=== PATIENT | female | born 1940 | race Caucasian/White ===

== ENCOUNTER 2019-04-18 21:59 | Inpatient (IN) | payer OTHER ==
[~2019-04-18] VITALS: Ht 154.9 cm; Wt 99.4 kg
--- NOTE | 2019-04-18 22:20 | NUR ---
chata at bedside attempting IV access. unable to obtain.
[2019-04-18 23:06] LABS: CALCIUM 7.8 mg/dL (8.5-10.1); CARBON DIOXIDE 33.5 mmol/L (21-32); CHLORIDE SERUM 98 mmol/L (98-107); CREATININE SERUM 0.8 mg/dL (0.6-1.0); GLUCOSE SERUM 135 mg/dL (74-106); POTASSIUM SERUM 4.5 mmol/L (3.5-5.1); SODIUM SERUM 137 mmol/L (136-145)
[2019-04-18 23:10] LABS: ALBUMIN 3.4 g/dL (3.4-5.0); ALKALINE PHOSPHATASE 472 U/L (46-116); ALT/SGPT 127 U/L (14-59); AST/SGOT 223 U/L (15-37); BILIRUBIN TOTAL 0.9 mg/dL (0.20-1.00); LIPASE 35 IU/L (73-393)
[2019-04-18 23:12] LABS: PLATELET COUNT 185 x10^3mcL (130-400)
[2019-04-18 23:17] LABS: RED CELL DISTRIBUTION WIDTH 18.4 % (11.5-14.5)
[2019-04-18 23:36] LABS: BAND NEUTROPHIL 6 % (0-10); BASOPHIL 0 % (0-2); MONOCYTE 1 % (0-7); SEGMENTED NEUTROPHILS 84 % (37-75); rbc morphology (normal/abnorm) NORMAL (NORMAL)
[2019-04-19] VITALS (17 sets, daily range): BP systolic 75–163; BP diastolic 47–80
--- NOTE | 2019-04-19 00:38 | NUR ---
EMPTIED ILEOSTOMY BAG. 250 CC OF BROWN LIQUID DRAINAGE. PT TOLERATED WELL.
[2019-04-19 01:16] LABS: UA SPECIFIC GRAVITY >=1.030 (1.005-1.035); microscopic required? YES; urine erythrocyte 2+ (NEGATIVE)
--- NOTE | 2019-04-19 01:37 | NUR ---
XRAY AT BEDSIDE.
--- NOTE | 2019-04-19 02:04 | NUR ---
ACCOMPANIED PATIENT TO CT AT THIS TIME.
--- NOTE | 2019-04-19 02:04 | NUR ---
ACCOMPANIED PATIENT TO CT.
--- NOTE | 2019-04-19 03:46 | NUR ---
SPOKE WITH DR VALLEJO REGARDING PATIENT RESISTING THE VENT, RECEIVED VERBAL ORDER TO TITRATE PROPOFOL FROM 10 MCG/KG/MIN TO 15 MCG/KG/MIN. PATIENT TOLERATING WELL UPON VENT.
--- NOTE | 2019-04-19 04:03 | NUR ---
PROVIDED PERICARE WITH CLEANSING CLOTHS, TOWEL DRIED, CHANGED ALL LINEN, AND DONNED GOWN. VITAL SIGNS REMAIN STABLE. PT APPEARS COMFORTABLE NO ACUTE DISTRESS NOTED.
--- NOTE | 2019-04-19 04:16 | NUR ---
ADMITTING MD AT BEDSIDE ASSESSING PT.
[2019-04-19 04:36] LABS: AMPHETAMINE QUAL UR NONE DETECTED (See below)
[2019-04-19 04:41] LABS: CHOLESTEROL/HDL RATIO 4.3
--- NOTE | 2019-04-19 04:56 | NUR ---
REPORT ENDORSED TO SAWMILL MOULDER OPERATOR SALVADOR.
--- NOTE | 2019-04-19 05:00 | NUR ---
PATIENT TRANSFERRED TO ICU ON PROPOFOL DRIP AT 15MCG/KG/MIN. TOLERATING WELL. VS REMAIN STABLE.
--- NOTE | 2019-04-19 06:30 | NUR ---
PT ADMITTED 0520 FROM ED. PT INTUBATED, SEDATED, AND RESTRAINED. RESTRAINT DOCUMENTATION COMPLETE IN PAPER AND COMPUTER CHARTING. PT WITH NO FAMILY CURRENTLY AT BEDSIDE AWAITING CONSULT FOR POSSIBLE SBO. ILLESTOMY SITE CURRENTLY PUTTING OUT SEMI FORMED BROWN STOOL. PROPOFOL INFUSING AT 25MCG/KG/MIN WITH MOVEMENT TO PHYSICAL STIMULUS. NO SIGNS/SYMPTOMS OF PAIN.
--- NOTE | 2019-04-19 08:33 | NUR ---
PT ADMINISTERED 4MG IVP MORPHINE AND 1L BOLUS INITIATED AT THIS TIME PER DR. PETERS REQUEST. WILL CONTINUE TO MONITOR.
--- NOTE | 2019-04-19 08:40 | NUR ---
DR. PETERS AT BEDSIDE. QUESTIONS ANSWERED, UPDATES PROVIDED. DR. PETERS RECOMMENDED ADMINISTERING 4MG MORPHINE IVP D/T PT APPEARING UNCOMFORTABLE AND SUGGESTED A 1L BOLUS OF NS. WILL CARRY OUT ORDERS.
[2019-04-19 08:46] LABS: CALCIUM 7.7 mg/dL (8.5-10.1); CARBON DIOXIDE 27.9 mmol/L (21-32); CHLORIDE SERUM 101 mmol/L (98-107); GLUCOSE SERUM 125 mg/dL (74-106); POTASSIUM SERUM 4.1 mmol/L (3.5-5.1); SODIUM SERUM 138 mmol/L (136-145)
--- NOTE | 2019-04-19 08:55 | NUR ---
CONTRAST INSTILLED VIA OGT FOR BOWEL SERIES. PT TOLERATED INSTILLATION WELL.
--- NOTE | 2019-04-19 09:09 | NUR ---
ECHOCARDIOGRAM PENDING-HAVING X-RAY
--- NOTE | 2019-04-19 09:20 | NUR ---
FIRST KUB AT BEDSIDE FOR BOWEL SERIES.
--- NOTE | 2019-04-19 09:30 | NUR ---
OGT ADVANCED BY ~5CM PER RADIOLOGIST REQUEST. PT TOLERATED ADVANCEMENT WELL. AIR BOLUS AUSCULTATED OVER STOMACH REGION.
[2019-04-19 09:36] LABS: PLATELET COUNT 152 x10^3mcL (130-400)
--- NOTE | 2019-04-19 09:56 | NUR ---
SECOND KUB AT BEDSIDE FOR BOWEL SERIES.
--- NOTE | 2019-04-19 10:35 | NUR ---
PATIENT ROUNDS WITH DR. MICHAEL AND RESIDENTS. CHARGE NURSE AND PRIMARY NURSE AT BEDSIDE. UPDATES PROVIDED AND POC DISCUSSED. WILL CONTINUE TO MONITOR.
[2019-04-19 11:28] LABS: RED CELL DISTRIBUTION WIDTH 18.2 % (11.5-14.5)
--- NOTE | 2019-04-19 12:55 | NUR ---
XRAY AT BEDSIDE FOR CONTINUATION OF BOWEL STUDY.
--- NOTE | 2019-04-19 14:31 | NUR ---
DR. REYES, DR. THOMPSON, AND MEDICAL STUDENTS AT BEDSIDE FOR INSERTION OF CENTRAL LINE. CONSENT OBTAINED AND SIGNED BY PT'S SON, AP.
--- NOTE | 2019-04-19 14:48 | NUR ---
SAHARA TL CVC INSERTION COMPLETED BY DR. REYES. PT TOLERATED PROCEDURE WELL.
[2019-04-19 15:11] LABS: BAND NEUTROPHIL 6 % (0-10); BASOPHIL 0 % (0-2); MONOCYTE 2 % (0-7); SEGMENTED NEUTROPHILS 91 % (37-75)
[2019-04-19 15:12] LABS: PLATELET MORPHOLOGY PLATELETS INCREASED; rbc morphology (normal/abnorm) ABNORMAL (NORMAL)
--- NOTE | 2019-04-19 19:30 | NUR ---
REC'D REPORT FROM TENISHA CONNOR TO ASSUME CARE. PT INTUBATED AND SEDATED ON FENTANYL 1 MCG/KG/HR, VERSED 2 MG/HR WITH RSS 4. PERRLA NOTED 2MM SLUGGISH ROBIN. RESPONSIVE TO TACTILE STIMULI. 7.5 ETT SECURED AT 20 CM @ LL. NO JVD NOTED. TRACHEA MIDLINE. OGT IN PLACE. RIJ CVC INTACT, PORTS PATENT, DSG CDI. EENT FREE OF DISCHARGE. ETT TO VENT: AC MODE RATE 14, TV 500, PEEP 5, FIO2 40%. CHEST RISE EQUAL AND SYMMETRICAL. LUNG SOUNDS CLEAR BUL, DIM BASES. DECK BUILDER IN PLACE SHOWING ST WITH HR 114. PULSES PALPABLE X4. NO EDEMA NOTED. CAP REFILL < 3 SECS. IVF NS INFUSING @ 75 ML/HR. GEN WEAKNESS NOTED. BUE SOFT WRIST RESTRAINTS IN PLACE FOR PT SAFETY. TURNED AND REPOSITIONED Q2H FOR PRESSURE RELIEF. ABD DISTENDED AND SOFT. BOWEL SOUNDS HYPOACTIVE. NO S/SX OF N/V/D. ILEOSTOMY IN PLACE, DRAINING SOFT BROWN STOOL. F/C INTACT AND DRAINING VIA GRAVITY FADY COLORED URINE. NO VAGINAL BLEEDING NOTED. BLE DISCOLORATION NOTED. BLE SCDS IN PLACE. ALL NEEDS MET AT THIS TIME. WILL CONTINUE TO MONITOR.
--- NOTE | 2019-04-19 19:40 | NUR ---
PTS ILEOSTOMY CLAMP NOT IN PLACE AND APPEARS BROKEN. ILEOSTOMY CHANGED AT THIS TIME. STOMA APPEARS PINK AND MOIST. NO S/SX OF INFECTION OR SKIN BREAKDOWN AROUND STOMA. PT TOLERATED WELL.
--- NOTE | 2019-04-19 20:10 | NUR ---
PTS BED NOTED SOILED WITH BLOOD FROM CENTRAL LINE INSERTION DURING DAYSHIFT, ALL LINENS CHANGED AT THIS TIME. RT MADE AWARE ANCHOR FAST SOILED WITH BLOOD.
--- NOTE | 2019-04-19 21:00 | NUR ---
ANCHOR FAST CHANGED AT THIS TIME BY RT.
--- NOTE | 2019-04-19 21:30 | NUR ---
PTS SON CALLED, UPDATED ON STATUS, ALL QUESTIONS AND CONCERNS ADDRESSED.
--- NOTE | 2019-04-19 23:30 | NUR ---
PT SEDATED BUT EASILY AROUSABLE. NO S/SX OF PAIN PER FLACC SCALE. VAP CARE PROVIDED. TURNED AND REPOSITIONED AT THIS TIME.
[2019-04-20] VITALS (10 sets, daily range): BP systolic 105–138; BP diastolic 50–77; Ht 154.9 cm; Wt 99.4 kg
--- NOTE | 2019-04-20 03:22 | NUR ---
FULL BED BATH PROVIDED WITH CHG WIPES, F/C CARE PROVIDED, ALL LINENS CHANGED.
[2019-04-20 04:49] LABS: PLATELET COUNT 100 x10^3mcL (130-400); RED CELL DISTRIBUTION WIDTH 17.2 % (11.5-14.5)
[2019-04-20 04:55] LABS: CALCIUM 7.1 mg/dL (8.5-10.1); CARBON DIOXIDE 25.8 mmol/L (21-32); CHLORIDE SERUM 103 mmol/L (98-107); CREATININE SERUM 0.9 mg/dL (0.6-1.0); GLUCOSE SERUM 95 mg/dL (74-106); MAGNESIUM 1.5 mg/dL (1.8-2.4); PHOSPHOROUS 2.2 mg/dL (2.5-4.9); POTASSIUM SERUM 4.3 mmol/L (3.5-5.1); SODIUM SERUM 136 mmol/L (136-145)
[2019-04-20 05:23] LABS: BAND NEUTROPHIL 17 % (0-10); BASOPHIL 0 % (0-2); MONOCYTE 7 % (0-7); SEGMENTED NEUTROPHILS 73 % (37-75)
[2019-04-20 05:25] LABS: rbc morphology (normal/abnorm) NORMAL (NORMAL)
--- NOTE | 2019-04-20 05:42 | NUR ---
REPORTED MAG [address] SO, NO NEW ORDERS GIVEN.
--- NOTE | 2019-04-20 07:14 | NUR ---
REPORT GIVEN TO TENISHA CONNOR TO ASSUME CARE.
--- NOTE | 2019-04-20 07:15 | NUR ---
REPORT RECEIVED FROM ADILENE CONNOR AND MORTEZA CONNOR. ALL CARES ASSUMED FOR THE SHIFT.
--- NOTE | 2019-04-20 08:08 | NUR ---
FIO2 ON VENT DECREASED TO 30% FROM 40% AT THIS TIME BY VIJAY RT. NO S/S DISTRESS NOTED.
--- NOTE | 2019-04-20 10:03 | NUR ---
DR. LOPEZ AT BEDSIDE TO ASSESS PT. UPDATES GIVEN, QUESTIONS ANSWERED.
--- NOTE | 2019-04-20 10:23 | NUR ---
CHEST XRAY COMPLETED AT BEDSIDE. PT TOLERATED WELL. PT REPOSITIONED AND MADE COMFORTABLE AFTER CXR. WILL CONTINUE TO MONITOR.
[2019-04-20 10:39] LABS: BILIRUBIN DIRECT 2.41 mg/dL (0.0-0.2); BILIRUBIN TOTAL 2.8 mg/dL (0.20-1.00); TOTAL PROTEIN, SERUM 6.4 g/dL (6.4-8.2)
[2019-04-20 10:46] LABS: ALBUMIN 3.2 g/dL (3.4-5.0)
--- NOTE | 2019-04-20 10:53 | NUR ---
SPOT CHECKED BLOOD SUGAR D/T NO NUTRITION AT THIS TIME. POC GLUCOSE 94.
--- NOTE | 2019-04-20 11:32 | NUR ---
PATIENT ROUNDS WITH DR. MICHAEL AND RESIDENTS. CHARGE NURSE AND PRIMARY NURSE AT BEDSIDE. UPDATES PROVIDED AND POC DISCUSSED. WILL CONTINUE TO MONITOR.
--- NOTE | 2019-04-20 11:38 | NUR ---
DR. PETERS AT BEDSIDE TO ASSESS PATIENT. FAMILY INCLUDING PATIENT'S SON AND DAUGHTER AT BEDSIDE. UPDATES PROVIDED AND POC DISCUSSED. VERSED AND FENTANYL DRIPS TURNED OFF AT THIS TIME FOR C-PAP TRIALS. GEETA STEVEN MADE AWARE. WILL CONTINUE TO MONITOR.
--- NOTE | 2019-04-20 11:52 | NUR ---
SEDATION TURNED BACK ON WITH VERSED AT 2 MG/HR AND FENTANYL DRIP AT 1 MCG/KG/HR PER DR. PETERS. NO PLAN FOR C-PAP TRIALS TODAY. DR. PETERS AGREES TO TRANSFER TO [facility] PER FAMILY'S REQUEST AND KEEP THE PATIENT INTUBATED FOR THE TRANSFER. GEETA STEVEN MADE AWARE.
--- NOTE | 2019-04-20 12:06 | NUR ---
DR. REYES HAS MADE ATTEMPTS TO GET IN CONTACT WITH [facility] AT [facility] TO COORDINATE TRANSFER, NO CONTACT MADE AT THIS TIME. FAMILY AWARE.
--- NOTE | 2019-04-20 12:34 | NUR ---
FAMILY STATING PATIENT IS UNCOMFORTABLE DUE TO PAIN FROM THE ETT. VERSED REMAINS AT 2 MG/HR AND FENTANYL DRIP TITRATED UP TO 2 MCG/KG/HR. RSS-3. GEETA STEVEN MADE AWARE. WILL CONTINUE TO MONITOR.
--- NOTE | 2019-04-20 12:36 | NUR ---
DR. BRYANT ACCEPTED THE PT TO [facility]. AWAITING CONFIRMATION OF AVAILABLE BED AT [facility].
--- NOTE | 2019-04-20 16:30 | NUR ---
PT DISCHARGED AT THIS TIME TO BE ADMITTED TO THE ICU AT [facility]. PT WAS PICKED UP BY [facility] FOR CCT. VITAL SIGNS STABLE AT TIME OF TRANSFER. FAMILY AT BEDSIDE, AWARE OF TRANSFER. ALL PT'S BELONGINGS IN POSSESSION OF FAMILY.
== END 2019-04-20 16:30 | disposition short-term general hospital (02) | DRG 871 ==
LOC: ED 21:59 → IC 04-19 04:00
PROVIDERS: Emergency Medicine; Internal Medicine Gastroenterology; ADMIT Internal Medicine
PROC: 5A1935Z Respiratory Ventilation, Less than 24 Consecutive Hours (ICD-10-PCS; principal; 2019-04-19)
PROC: 0BH17EZ Insertion of Endotracheal Airway into Trachea, Via Natural or Artificial Opening (ICD-10-PCS; 2019-04-19)
PROC: 05HM33Z Insertion of Infusion Device into Right Internal Jugular Vein, Percutaneous Approach (ICD-10-PCS; 2019-04-19)
PROC: B543ZZA Ultrasonography of Right Jugular Veins, Guidance (ICD-10-PCS; 2019-04-19)
DX: A41.9 Sepsis, unspecified organism (principal); J96.02 Acute respiratory failure with hypercapnia; J18.9 Pneumonia, unspecified organism; J44.1 Chronic obstructive pulmonary disease with (acute) exacerbation; N39.0 Urinary tract infection, site not specified; K56.609 Unspecified intestinal obstruction, unspecified as to partial versus complete obstruction; I11.0 Hypertensive heart disease with heart failure; I50.9 Heart failure, unspecified; R74.0 Nonspecific elevation of levels of transaminase and lactic acid dehydrogenase [LDH]; E83.51 Hypocalcemia; E78.5 Hyperlipidemia, unspecified; D63.8 Anemia in other chronic diseases classified elsewhere; Z93.2 Ileostomy status; Z68.38 Body mass index [BMI] 38.0-38.9, adult
CPT/HCPCS: 31500; 36558; C1751; 36556; 36600; 82962; 83880; 87107; A4628; C9113; G0378; J0692; J1642; J1956; J2060; J2250; J2270; J2405; J2543; J2704; J3010; J3370; J3475; J3490; J7030; J7040; J7613; J7644; P9047; Q0092; Q9967